=== PATIENT | male | born 1985 | race Caucasian/White ===

== ENCOUNTER 2017-08-27 08:01 | Outpatient (RCR) | payer BC | END 2017-10-18 15:38 | disposition home or self-care (01) | DX: M54.5 Low back pain (principal) ==

== ENCOUNTER 2019-02-01 12:48 | Emergency (ER) | payer OTHER ==
[~2019-02-01] VITALS: Ht 182.9 cm; Wt 90.7 kg
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
[2019-02-01 13:13] LABS: HEMOGLOBIN 14.6 G/DL (13.3-17.7); MEAN PLATELET VOLUME 9.7 FL (7.4-10.4); RED CELL DISTRIBUTION WIDTH 13.3 % (10.0-14.5); WHITE BLOOD COUNT 5.6 10^3/uL (4.3-11.0)
[2019-02-01] MEDS ORDERED: LIDOCAINE 1% INJ 20 ML 20 ML VIAL INJ ONE (13:15)
[2019-02-01] MEDS ORDERED: TETANUS,DIPTH,PERTUSS P/F (BOOSTRIX) 0.5 ML VIAL IM ONE (13:15)
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
[2019-02-01 13:27] LABS: ALANINE AMINOTRANSFERASE 14 U/L (0-55); ALBUMIN 4.6 GM/DL (3.2-4.5); ALKALINE PHOSPHATASE 54 U/L (40-136); BILIRUBIN,DIRECT 0.4 MG/DL (0.0-0.3); BILIRUBIN,INDIRECT 0.7 MG/DL; BILIRUBIN,TOTAL 1.1 MG/DL (0.1-1.0); BUN/CREATININE RATIO 17; CALCIUM 9.5 MG/DL (8.5-10.1); CARBON DIOXIDE 23 MMOL/L (21-32); CHLORIDE 105 MMOL/L (98-107); GFR ESTIMATED > 60; GLUCOSE 96 MG/DL (70-105); POTASSIUM 3.9 MMOL/L (3.6-5.0); SODIUM 141 MMOL/L (135-145); TOTAL PROTEIN 6.9 GM/DL (6.4-8.2)
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
[2019-02-01] MEDS ORDERED: ceFAZolin INJECTION 1,000 MG in WATER (STERILE) FOR INJECTION 10 ML IV ONE (13:30)
[2019-02-01 14:28] VITALS: BP_SYST 126; BP_SYST 129; BP_SYST 134; BP_DIAS 72; BP_DIAS 73; BP_DIAS 95
[2019-02-01 14:37] LABS: BILIRUBIN,URINE NEGATIVE (NEGATIVE); CLARITY,URINE CLEAR; COLOR,URINE YELLOW; GLUCOSE, URINE (UA) NEGATIVE (NEGATIVE); KETONES,URINE NEGATIVE (NEGATIVE); LEUKOCYTE ESTERASE ,URINE NEGATIVE (NEGATIVE); NITRITE,URINE NEGATIVE (NEGATIVE); PH,URINE 6.5 (5-9); PROTEIN,URINE NEGATIVE (NEGATIVE); UROBILINOGEN,URINE NORMAL (NORMAL)
[2019-02-01 14:44] LABS: BACTERIA,URINE NEGATIVE /HPF; RBC,URINE 0-2 /HPF; WBC,URINE RARE /HPF
[2019-02-01 14:49] LABS: AMPHETAMINE SCREEN, URINE NEGATIVE (NEGATIVE); BARBITURATE SCREEN URINE NEGATIVE (NEGATIVE); BENZODIAZEPINES SCREEN URINE NEGATIVE (NEGATIVE); CANNABINOID SCREEN, URINE NEGATIVE (NEGATIVE); COCAINE SCREEN URINE NEGATIVE (NEGATIVE); METHADONE STAT NEGATIVE (NEGATIVE); METHAMPHETAMINE SCREEN URINE S NEGATIVE (NEGATIVE); OPIATE SCREEN URINE NEGATIVE (NEGATIVE); OXYCODONE STAT NEGATIVE (NEGATIVE); PROPOXYPHENE STAT NEGATIVE (NEGATIVE); TRICYCLIC ANTIDEPRESSANTS SCRE NEGATIVE (NEGATIVE)
[2019-02-01] MEDS ORDERED: ONDA4TAB11 PO (15:11)
[2019-02-01] MEDS ORDERED: CYCL10TA9 PO (15:11)
[2019-02-01 15:35] VITALS: BP 123/72
== END 2019-02-01 15:35 | disposition home or self-care (01) ==
LOC: EDUNIT# 12:48 → ER 12:50
DX: S06.0X1A Concussion with loss of consciousness of 30 minutes or less, initial encounter (principal); S01.01XA Laceration without foreign body of scalp, initial encounter; R55 Syncope and collapse; R40.2142 Coma scale, eyes open, spontaneous, at arrival to emergency department; R40.2252 Coma scale, best verbal response, oriented, at arrival to emergency department; R40.2362 Coma scale, best motor response, obeys commands, at arrival to emergency department; Z23 Encounter for immunization; V47.5XXA Car driver injured in collision with fixed or stationary object in traffic accident, initial encounter; Y92.410 Unspecified street and highway as the place of occurrence of the external cause
CPT/HCPCS: 12002; 36415; 70450; 71045; 72125; 80048; 80076; 80306; 80320; 81000; 84443; 85027; 90715; 93005; 93041

== ENCOUNTER 2021-03-27 15:33 | Outpatient (RCR) | payer OTHER ==
[~2021-03-27 15:33] MED LIST: CYCL10TA9 PO; ONDA4TAB11 PO
== END 2021-06-25 | disposition home or self-care (01) ==
LOC: LAB 15:33
PROVIDERS: ATTEND Family Medicine
DX: Z30.8 Encounter for other contraceptive management (principal)
CPT/HCPCS: 89321

== ENCOUNTER 2021-05-11 07:30 | Outpatient (RCR) | payer OTHER | END 2021-08-03 | disposition home or self-care (01) | LOC: LAB 07:30 | PROVIDERS: ATTEND Family Medicine | DX: Z30.8 Encounter for other contraceptive management (principal) | CPT/HCPCS: 89321 ==

== ENCOUNTER → 2022-04-16 | Outpatient (CLI) | payer OTHER ==
[~2022-04-16] MED LIST changes: +CYCL10TA25 PO; -CYCL10TA9 PO
== END ==
LOC: CARD 12:00
PROVIDERS: ATTEND Internal Medicine Cardiovascular Disease
DX: R55 Syncope and collapse (principal)
CPT/HCPCS: 93225; 93226; 93306

== ENCOUNTER → 2022-04-20 | Outpatient (CLI) | payer OTHER ==
[~2022-04-20] VITALS: Ht 182 cm; Wt 90.0 kg
[~2022-04-20] MED LIST changes: +REGADENOSON 0.4 MG/5 ML SYR (LEXISCAN) IV ONE
[2022-04-20] MEDS: CATHETER FLUSH 10 ML SYR IVP PRN ×2 (07:19→09:12)
[2022-04-20 09:10] VITALS: BP 127/77
== END ==
LOC: CARD 07:30
PROVIDERS: ATTEND Internal Medicine Cardiovascular Disease
DX: R55 Syncope and collapse (principal)
CPT/HCPCS: 78452; 93017; A9502